=== PATIENT | female | born 1985 | race Caucasian/White ===

== ENCOUNTER → 2022-07-24 15:13 | Outpatient (CLI) | payer BC, SELFPAY ==
--- NOTE | ~2022-07-24 | US_ITS ---
EXAMINATION: US pelvic complete w TV DATE: 07/24/2022 15:49 INDICATION: Menorrhagia. Comparison:No prior studies for comparison. TECHNIQUE: Multiple transabdominal and endovaginal sonographic images of the pelvis performed. FINDINGS: The uterus measures 7.8 x 4.6 x 5.1 cm. The endometrial complex measures 4 mm. The right ovary measures 2.3 x 2 x 1.5 cm and the left ovary measures 2.5 x 1.6 x 1.7 cm. There are small follicles in each ovary. Normal doppler signal in both ovaries. There is no free fluid in the pelvis. There are no abnormal masses seen on either side. IMPRESSION: 1. Unremarkable pelvic ultrasound. Reviewed, dictated and finalized at location A.
== END ==
PROVIDERS: PCP Family Medicine; Visit Provider Obstetrics & Gynecology
DX: N92.0 Excessive and frequent menstruation with regular cycle (principal); Z13.29 Encounter for screening for other suspected endocrine disorder; E66.9 Obesity, unspecified; N93.9 Abnormal uterine and vaginal bleeding, unspecified; N93.0 Postcoital and contact bleeding; G43.829 Menstrual migraine, not intractable, without status migrainosus
CPT/HCPCS: 76830; 76856